=== PATIENT | female | born 1975 | race Caucasian/White ===

== ENCOUNTER 2024-10-16 15:23 | Emergency (ER) | payer OTHER, SELFPAY ==
--- NOTE | ~2024-10-16 | US_ITS ---
EXAMINATION: US TRIPLEX LOWER EXTREMITY, LEFT CLINICAL INFORMATION: Pain and swelling left lower extremity COMPARISON: None available. TECHNIQUE: Color-flow triplex imaging with spectral analysis and compression Doppler were performed on the left lower extremity. FINDINGS: Respiratory variation, normal compression and augmented flow are noted throughout the left lower extremity. The visualized common femoral vein, superficial femoral vein, profunda femoral vein, popliteal vein and midcalf peroneal and posterior tibial venous segments show no evidence of deep venous thrombosis. There is no Jang's cyst. Noncompressible thrombus was noted within the left greater saphenous vein from the mid thigh to the calf level. US/US venous duplex LE IMPRESSION: 1. No evidence of deep venous thrombosis involving the left lower extremity. 2. There is superficial thrombus within the left greater saphenous vein from the mid thigh to the calf. Electronically signed by: Zeeshan Escalante MD 10/16/2024 04:43 PM EDT
--- NOTE | 2024-10-16 15:55 | ED.GENADULT ---
HPI - General Adult General Chief complaint: Extremity Problem Stated complaint: left leg swelling,reddened,numbness in foot Time Seen by Provider: 10/16/24 20:09 Source: patient Mode of arrival: ambulatory Limitations: no limitations History of Present Illness ED Provider: Zeeshan LAINEZ HPI narrative: Patient is a 49-year-old female presenting to the ED for evaluation of 5 days of left medial proximal calf pain which is now advancing above the knee with associated pain and some numbness. The patient reports she recently traveled to [place] for vacation, while in [place] patient's sciatica flare up on the right side for which she was placed on prednisone by her PCP and is currently in the process of initiating gabapentin. Patient reports 5 days ago she developed pain in the left calf which she 1st attributed to her low back pain/sciatica, however symptoms began increasing and patient noted erythema of the left medial calf, which has since advanced up to the left distal thigh. Patient denies associated chest pain, pleurisy, shortness of breath, near-syncope, syncope, or other acute somatic complaint, denies history of coagulopathy. Related Data Home Medications ?Medication ?Instructions ?Recorded ?Confirmed drospirenone 3 mg-ethinyl 1 tab PO DAILY 06/21/21 estradiol 0.02 mg tablet levothyroxine 50 mcg tablet 50 mcg PO DAILY 06/21/21 Previous Rx's ?Medication ?Instructions ?Recorded azithromycin 250 mg tablet See Rx Instructions PO .COMPLEX #6 06/21/21 tabs apixaban 5 mg (74 tabs) tablets in 5 mg PO BID #74 ea 10/16/24 a dose pack (Sentrix DVT-PE Treat 30D Start) cephalexin 500 mg capsule 500 mg PO QID #28 caps 10/16/24 Allergies Allergy/AdvReac Type Severity Reaction Status Date / Time No Known Allergies Allergy Verified 10/16/24 15:57 Review of Systems Review of Systems: Yes all other systems are reviewed and are negative PMFSH Social History Social History Advance Directives: Yes Advance Directives Information Provided: No Advance Directives on File: No Physical Exam ED Exam Exam: CONSTITUTIONAL: The patient appears non-toxic, well nourished and in no acute distress. Vital signs as documented. HEAD: Atraumatic, normocephalic. EYES: EOMs grossly intact, pupils equal, conjunctiva clear, no exudate. ENT: Nares patent, no discharge. Airway patent, no audible stridor, visible mucosa is pink and moist without noted lesions. NECK: trachea is midline, no obvious masses or gross abnormalities. CHEST: Symmetric movement, normal appearance. LUNGS: Non-labored work of breathing. CARDIAC: No evidence of hypoperfusion. ABDOMEN: Nondistended, no obvious injury. : Deferred. EXTREMITIES: There is well demarcated erythema with mild induration noted to the proximal left calf as well as the distal posteromedial left thigh, the 2 areas are not confluent. No open injury, no drainage. Distal CSM is intact. Moves all extremities spontaneously without reported pain. No other obvious injury or deformity noted. NEURO: Alert and oriented x3, CN II-XII appear grossly intact. Cerebellar Functioning grossly intact. Speech clear and appropriate. SKIN: Warm, dry, color appropriate. No rashes or lesions noted. Vital Signs: Vital Signs - 24 hr 10/16/24 15:56 Temperature 98.2 F Pulse Rate 106 H Respiratory Rate 16 Blood Pressure 157/74 H Pulse Oximetry 97 Oxygen Delivery Method Room Air BMI result Body Mass Index 28.5 Course Course Course Narrative: This is a rapid medical exam performed by Sarah Gusman NP: Additional HPI, ROS, PE not included below will be deferred to primary provider. Patient is a 49-year-old female presenting with complaint of left sided calf pain and medial swelling. Also having numbness to foot. 2weeks ago had R sided sciatic pain which improved with prednisone. States this feels different. Plan: Labs, U/S Medical Decision Making Medical Decision Making MDM Narrative: 8:11 PM 10/16/2024 ([place] LAINEZ): Patient is a 49-year-old female presenting to the ED for evaluation of 5 days of left medial proximal calf pain which is now advancing above the knee with associated pain and some numbness. The patient reports she recently traveled to [place] for vacation, while in [place] patient's sciatica flare up on the right side for which she was placed on prednisone by her PCP and is currently in the process of initiating gabapentin. Patient reports 5 days ago she developed pain in the left calf which she 1st attributed to her low back pain/sciatica, however symptoms began increasing and patient noted erythema of the left medial calf, which has since advanced up to the left distal thigh. Patient denies associated chest pain, pleurisy, shortness of breath, near-syncope, syncope, or other acute somatic complaint, denies history of coagulopathy. The patient's exam is consistent with superficial thrombophlebitis. The patient's laboratory evaluation is reassuring, no leukocytosis, anemia, electrolyte abnormality or [place]. The patient's ultrasound shows no evidence of DVT, however there is a thrombus noted in the greater saphenous vein of the left calf advancing into the left thigh. Presentation appears consistent with venous thrombus of the greater saphenous with overlying superficial thrombophlebitis. Due to the involvement of the greater saphenous vein we will treat with Eliquis, and treat the thrombophlebitis with cephalexin. Admission/Observation Consideration of admission/observation: Escalation of care including admission/observation considered Lab Data MDM Lab Attestation statement: I reviewed the patient's lab results. 10/16/24 16:46 10/16/24 16:46 Labs: Lab Results 10/16/24 Range/Units 16:46 WBC 7.9 (4.8-10.8) X10*3/uL RBC 4.32 (4.20-5.50) X10*6/uL Hgb 14.0 (12.0-16.0) g/dl Hct 39.6 (37.0-47.0) % MCV 91.7 (80.0-98.0) fL MCH 32.4 (27.0-33.0) pg MCHC 35.4 H (31.0-35.0) g/dl RDW 13.1 (11.0-16.0) % Plt Count 245 (160-400) X10*3/uL MPV 9.5 (9.4-12.3) fL Immature Gran % (Auto) 2.0 H (0.0-0.4) % Neut % (Auto) 58.7 (45-73) % Lymph % (Auto) 20.5 (20-40) % Kendall % (Auto) 15.0 H (2-11) % Eos % (Auto) 3.3 (0-4) % Baso % (Auto) 0.5 (0-2) % Lymph # (Auto) 1.6 (1.2-4.9) X10*3/uL Kendall # (Auto) 1.2 (0.1-1.2) X10*3/uL Eos # (Auto) 0.3 (0.0-0.4) X10*3/uL Baso # (Auto) 0.0 (0.0-0.2) X10*3/uL Abs Immat Gran (auto) 0.16 H (0.00-0.03) X10*3/uL Absolute Neuts (auto) 4.6 (2.0-8.3) x10*3/uL Absolute Nucleated RBC 0.000 (0.0-0.012) X10*3/uL Nucleated RBC % (auto) 0.0 (0.0-0.2) /100WBC Sodium 138 (135-145) mmol/L Potassium 4.5 (3.3-5.1) mmol/L Chloride 101 (96-108) mmol/L Carbon Dioxide 28 (22-29) mmol/L Anion Gap 14 (12-20) BUN 15 (9-16) mg/dL Creatinine 0.85 (0.5-1.4) mg/dL Estim Creat Clear Calc 85.4 Estimated GFR > 60 Random Glucose 103 (60-115) mg/dL Calcium 9.0 (8.4-10.2) mg/dL Total Bilirubin 0.3 (0.0-1.0) mg/dL AST 23 (5-31) U/L ALT 27 (0-31) U/L Alkaline Phosphatase 47 (39-117) U/L Total Protein 7.4 (6.5-8.0) g/dL Albumin 4.1 (3.5-5.0) g/dL Radiology Impression Discussion of test interpretation with radiology: I have reviewed the radiologist's reading. Radiologist Impression: EXAMINATION: US TRIPLEX LOWER EXTREMITY, LEFT CLINICAL INFORMATION: Pain and swelling left lower extremity COMPARISON: None available. TECHNIQUE: Color-flow triplex imaging with spectral analysis and compression Doppler were performed on the left lower extremity. FINDINGS: Respiratory variation, normal compression and augmented flow are noted throughout the left lower extremity. The visualized common femoral vein, superficial femoral vein, profunda femoral vein, popliteal vein and midcalf peroneal and posterior tibial venous segments show no evidence of deep venous thrombosis. There is no Jang's cyst. Noncompressible thrombus was noted within the left greater saphenous vein from the mid thigh to the calf level. US/US venous duplex LE LT IMPRESSION: 1. No evidence of deep venous thrombosis involving the left lower extremity. 2. There is superficial thrombus within the left greater saphenous vein from the mid thigh to the calf. Electronically signed by: Zeeshan Escalante MD 10/16/2024 04:43 PM EDT RP Workstation: [id number] Prescription Management I considered prescription management with: Pain Medication and Antibiotic Discharge Plan Discharge Clinical Impression: Thrombus Superficial thrombophlebitis Qualifiers: Superficial thrombophlebitis-Involved body area: lower extremity Laterality: left Qualified Code(s): I80.02 - Phlebitis and thrombophlebitis of superficial vessels of left lower extremity Patient Disposition: Home, Self-Care Instructions: Superficial Thrombophlebitis (ED), Deep Vein Thrombosis (ED), Venous Thromboembolism (ED) Additional Instructions: Thank you for choosing [facility] Emergency Department for your care today. At this time there is no indication for admission to the hospital or continued ED observation, and it is safe to discharge you home. Your ultrasound today shows no evidence of a true DVT, however does show evidence of a thrombus (blood clot) in the superficial greater saphenous vein of your left lower extremity. The redness and pain/tenderness of your left leg is secondary to this blood clot, a condition known as superficial thrombophlebitis. A blood clot in specifically the greater saphenous vein is still treated as a DVT with anticoagulation, and the inflammation associated with the is treated with an antibiotic. Please take Eliquis as prescribed until instructed otherwise by your primary care physician. Please take cephalexin 4 times a day as prescribed until it is finished. You may take 1 g of Tylenol every 6 hours as needed for any additional pain. May also apply warm compresses to the area. Please follow up with your primary care physician for re-evaluation, additional management of your diagnosis, and continued preventative care. If you do not have a primary care physician, please call the [facility] at [phone] to establish a new primary care physician. While waiting to establish your new primary care physician, you can call our [facility] at [phone] for non-emergency needs. Please return to the emergency department if you develop a severe or sudden change in your symptoms, a fever over 100.4 that does not improve with Tylenol or Ibuprofen, recurrent vomiting, or any other new or worsening symptoms or concerns. Prescriptions: New cephalexin 500 mg capsule 500 mg PO QID Qty: 28 0RF Eliquis DVT-PE Treat 30D Start 5 mg (74 tabs) tablets,dose pack 5 mg PO BID Qty: 74 0RF No Action azithromycin 250 mg tablet See Rx Instructions PO .COMPLEX Qty: 6 0RF Rx Instructions: For 250 mg dose pack: take 500 mg today (day 1), then 250 mg for 4 days (days 2-5) PO; levothyroxine 50 mcg tablet 50 mcg PO DAILY drospirenone-ethinyl estradiol 3-0.02 mg tablet 1 tab PO DAILY Referrals: Daren Arteaga MD [Primary Care Provider, Medical] Clinical Impression: Thrombus; Superficial thrombophlebitis Print Language: Polish
[2024-10-16 15:56] VITALS: BP 157/74; PULSE 106; RESP 16; TEMP 36.8; O2SAT 97; BMI 28.5
[2024-10-16 16:51] LABS: MANUAL DIFF FLAG NO
[2024-10-16 16:53] LABS: Hematocrit 39.6 % (37.0-47.0); Hemoglobin 14.0 g/dl (12.0-16.0); Imm Gran Abs Auto 0.16 X10*3/uL (0.00-0.03); Imm Gran Pct Auto 2.0 % (0.0-0.4); Lymphocytes Absolute Auto 1.6 X10*3/uL (1.2-4.9); Mean Corpuscular HGB Conc 35.4 g/dl (31.0-35.0); Mean Corpuscular Hemoglobin 32.4 pg (27.0-33.0); Mean Corpuscular Volume 91.7 fL (80.0-98.0); NRBC Abs Auto 0.000 X10*3/uL (0.0-0.012); NRBC Pct Auto 0.0 /100WBC (0.0-0.2); Platelet Count 245 X10*3/uL (160-400); Red Blood Count 4.32 X10*6/uL (4.20-5.50); White Blood Count 7.9 X10*3/uL (4.8-10.8)
[2024-10-16 17:09] LABS: Alanine Aminotransferase 27 U/L (0-31); Albumin Level 4.1 g/dL (3.5-5.0); Alkaline Phosphatase 47 U/L (39-117); Anion Gap 14 (12-20); Aspartate Amino Transferase 23 U/L (5-31); Blood Urea Nitrogen 15 mg/dL (9-16); Calcium 9.0 mg/dL (8.4-10.2); Carbon Dioxide 28 mmol/L (22-29); Chloride 101 mmol/L (96-108); Creatinine Clr Calc Pharmacy 85.4; Estimated Glomerular Filt Rate > 60; Potassium 4.5 mmol/L (3.3-5.1); Sodium 138 mmol/L (135-145); Total Protein 7.4 g/dL (6.5-8.0)
[2024-10-16 21:34] VITALS: BP 157/74; PULSE 106; RESP 16; TEMP 36.8; O2SAT 97
[2024-10-16 21:35] LABS: INTERNATIONAL NORM RATIO 1.0 (0.9-1.1); Prothrombin Time 11.2 SEC (10.9-12.4)
[2024-10-16 21:38] LABS: Partial Thromboplastin Time 24.6 SEC (26.7-34.1)
== END 2024-10-16 21:34 | disposition home or self-care (01) ==
PROVIDERS: Physician Assistant; Registered Nurse Emergency; Emergency Provider Emergency Medicine; PCP Internal Medicine
DX: I80.02 Phlebitis and thrombophlebitis of superficial vessels of left lower extremity (principal); M79.662 Pain in left lower leg
CPT/HCPCS: 36415; 80053; 85025; 85610; 85730; 93971; 99282; 99284

== ENCOUNTER → 2024-10-16 15:51 | Outpatient (BNV) | payer OTHER, SELFPAY | PROVIDERS: PCP Internal Medicine; Visit Provider Radiology Diagnostic Radiology | DX: I82.812 Embolism and thrombosis of superficial veins of left lower extremity (principal) | CPT/HCPCS: 93971 ==